=== PATIENT | female | born 1970 | race American Indian/Alaskan Native ===

== ENCOUNTER 2017-12-20 16:55 | Emergency (ER) | payer SELFPAY ==
[2017-12-20 17:01] VITALS: BP 157/57
== END 2017-12-20 18:28 | disposition left against medical advice (07) ==
LOC: ED 16:55
DX: Z04.1 Encounter for examination and observation following transport accident (principal); Z53.21 Procedure and treatment not carried out due to patient leaving prior to being seen by health care provider; V89.2XXA Person injured in unspecified motor-vehicle accident, traffic, initial encounter; Y93.89 Activity, other specified; Y99.8 Other external cause status; Y92.410 Unspecified street and highway as the place of occurrence of the external cause